=== PATIENT | male | born 1960 | race African-American/Black ===

== ENCOUNTER 2019-03-20 11:27 | Emergency (ER) | payer BC ==
[2019-03-20] MEDS ORDERED: NORMAL SALINE 1000 ML 1,000 ML IV ONE ×3 (11:55→19:37)
[2019-03-20] MEDS ORDERED: THIAMINE HCL 100 MG, FOLIC ACID 1 MG in NORMAL SALINE 250 ML IV ONE (11:57)
--- NOTE | 2019-03-20 11:57 | ER Document Report ---
ED Medical Screen (RME) - General Chief Complaint: Altered Mental Status Stated Complaint: ALTERED MENTAL STATUS Time Seen by Provider: 03/20/19 11:50 Mode of Arrival: Wheelchair Information source: Patient, Relative Cannot obtain history due to: Altered mental status Notes: Patient presents with family member with concerns about patient's health. Patient lives alone and has had a significant weight loss. Review of [facility] records demonstrates a weight loss of 32 kg over the past 4 years. Family member states that patient does drink alcohol daily and has been having memory issues gradually over the past 2 months. Family member checks on patient twice a week and states that he was just balled up in the bed. Patient denies any complaints, no headache, no chest or abdominal pain no nausea or vomiting. Patient is tachycardic in triage. Patient denies feeling like he is having palpitations. Patient poor historian, family member answers majority of questions for patient. I have greeted and performed a rapid initial assessment of this patient. A comprehensive ED assessment and evaluation of the patient, analysis of test results and completion of the medical decision making process will be conducted by additional ED providers. TRAVEL OUTSIDE OF THE [place] IN LAST 30 DAYS: No - Related Data Allergies/Adverse Reactions: No Known Allergies Allergy (Verified 03/20/19 11:28) Past Medical History - Social History Chew tobacco use (# tins/day): No Frequency of alcohol use: Heavy Drug Abuse: None - Past Medical History Cardiac Medical History: Reports: Hx Hypertension - no meds Denies: Hx Coronary Artery Disease, Hx Heart Attack Pulmonary Medical History: Denies: Hx Asthma, Hx Bronchitis, Hx COPD, Hx Pneumonia Neurological Medical History: Denies: Hx Cerebrovascular Accident, Hx Seizures Renal/ Medical History: Denies: Hx Peritoneal Dialysis Musculoskeltal Medical History: Reports Hx Arthritis - knees, feet - Immunizations Hx Diphtheria, Pertussis, Tetanus Vaccination: No Physical Exam - Vital signs Vitals: Temp Pulse Resp BP Pulse Ox 98.1 F 127 H 20 121/79 97 03/20/19 11:37 03/20/19 11:37 03/20/19 11:37 03/20/19 11:37 03/20/19 11:37 - General General appearance: Alert Notes: Patient quiet, answers only some of his questions, family member answers majority of questions, patient cachectic, tachycardic Course - Vital Signs Vital signs: Temp Pulse Resp BP Pulse Ox 98.1 F 127 H 20 121/79 97 03/20/19 11:37 03/20/19 11:37 03/20/19 11:37 03/20/19 11:37 03/20/19 11:37
--- NOTE | 2019-03-20 12:22 | RADIOLOGY REPORT (SQ) ---
EXAM DESCRIPTION: CT HEAD WITHOUT COMPLETED DATE/TIME: 03/20/2019 12:11 pm REASON FOR STUDY: AMS COMPARISON: None. TECHNIQUE: Axial images acquired through the brain without intravenous contrast. Images reviewed wi th bone, brain and subdural windows. Additional sagittal and coronal reconstructions were generated. Images stored on PACS. All CT scanners at this facility use dose modulation, iterative reconstruction, and/or weight based d osing when appropriate to reduce radiation dose to as low as reasonably achievable (ALARA). [facility]: Dose Right [facility]: CareDose [facility]: Dose Right [facility]: Teradose 4D [facility]: [employer] RADIATION DOSE: CT Rad equipment meets quality standard of care and radiation dose reduction techniq ues were employed. CTDIvol: 53.2 mGy. DLP: 1044 mGy-cm. mGy. LIMITATIONS: None. FINDINGS: VENTRICLES: Normal size and contour. CEREBRUM: No masses. No hemorrhage. No midline shift. No evidence for acute infarction. Normal gra y/white matter differentiation. No areas of low density in the white matter. CEREBELLUM: No masses. No hemorrhage. No alteration of density. No evidence for acute infarction. EXTRAAXIAL SPACES: No fluid collections. No masses. ORBITS AND GLOBE: No intra- or extraconal masses. Normal contour of globe without masses. CALVARIUM: No fracture. PARANASAL SINUSES: No fluid or mucosal thickening. SOFT TISSUES: No mass or hematoma. OTHER: No other significant finding. IMPRESSION: NORMAL BRAIN CT WITHOUT CONTRAST. EVIDENCE OF ACUTE STROKE: NO. COMMENT: Quality ID # 436: Final reports with documentation of one or more dose reduction techniques (e.g., Automated exposure control, adjustment of the mA and/or kV according to patient size, use of iterative reconstruction technique) TECHNICAL DOCUMENTATION: JOB ID: [id number] [facility]- All Rights Reserved Reading location - IP/workstation name: [email or web address]
--- NOTE | 2019-03-20 12:34 | RADIOLOGY REPORT (SQ) ---
EXAM DESCRIPTION: CHEST 2 VIEWS COMPLETED DATE/TIME: 03/20/2019 12:19 pm REASON FOR STUDY: AMS, wt loss, tachycardia COMPARISON: 11/04/2014. EXAM PARAMETERS: NUMBER OF VIEWS: two views TECHNIQUE: Digital Frontal and Lateral radiographic views of the chest acquired. RADIATION DOSE: NA LIMITATIONS: none FINDINGS: LUNGS AND PLEURA: No opacities, masses or pneumothorax. No pleural effusion. MEDIASTINUM AND HILAR STRUCTURES: No masses or contour abnormalities. HEART AND VASCULAR STRUCTURES: Heart normal size. No evidence for failure. BONES: No acute findings. HARDWARE: None in the chest. OTHER: No other significant finding. IMPRESSION: NO ACUTE RADIOGRAPHIC FINDING IN THE CHEST. TECHNICAL DOCUMENTATION: JOB ID: [id number] [employer]- All Rights Reserved Reading location - IP/workstation name: [email or web address]
[2019-03-20 12:58] LABS: ABSOLUTE LYMPHOCYTES (AUTO) 1.2 10^3/uL (0.5-4.7); ABSOLUTE MONOCYTES (AUTO) 0.4 10^3/uL (0.1-1.4); ABSOLUTE NEUT (AUTO) 5.7 10^3/uL (1.7-8.2); BASOPHILS % (AUTO) 0.2 % (0-2); HEMATOCRIT 38.1 % (37.9-51.0); HEMOGLOBIN 13.1 g/dL (13.5-17.0); LYMPHOCYTES % (AUTO) 16.5 % (13-45); MEAN CORPUSCULAR HEMOGLOBIN 33.8 pg (27.0-33.4); MEAN CORPUSCULAR HGB CONC 34.5 g/dL (32.0-36.0); MEAN CORPUSCULAR VOLUME 98 fl (80-97); MONOCYTES % (AUTO) 5.9 % (3-13); PLATELET COUNT 282 10^3/uL (150-450); RED BLOOD COUNT 3.89 10^6/uL (4.35-5.55); RED CELL DISTRIBUTION WIDTH 13.8 % (11.5-14.0); SEGMENTED NEUTROPHILS % (AUTO) 77.4 % (42-78); TOTAL CELLS COUNTED % (AUTO) 100 %; WHITE BLOOD COUNT 7.4 10^3/uL (4.0-10.5)
[2019-03-20 13:20] LABS: ALANINE AMINOTRANSFERASE 37 U/L (21-72); ALBUMIN 4.7 g/dL (3.5-5.0); ALKALINE PHOSPHATASE 87 U/L (38-126); ANION GAP 19 (5-19); ASPARTATE AMINO TRANSFERASE 54 U/L (17-59); BILIRUBIN,DIRECT 0.8 mg/dL (0.0-0.4); BILIRUBIN,TOTAL 1.7 mg/dL (0.2-1.3); BLOOD UREA NITROGEN 29 mg/dL (7-20); CALCIUM 10.4 mg/dL (8.4-10.2); CARBON DIOXIDE 20 mmol/L (22-30); CHLORIDE 104 mmol/L (98-107); CREATINE KINASE 23 U/L (55-170); GLUCOSE 179 mg/dL (75-110); POTASSIUM 3.9 mmol/L (3.6-5.0); SODIUM 142.9 mmol/L (137-145); TOTAL PROTEIN 9.4 g/dL (6.3-8.2)
[2019-03-20 13:22] LABS: ALCOHOL < 10 mg/dL (NONE DETECTED)
[2019-03-20 13:32] LABS: CREATINE KINASE MB < 0.22 ng/mL (<4.55); TROPONIN I < 0.012 ng/mL
--- NOTE | 2019-03-20 15:34 | ER Document Report ---
ED General - General Chief Complaint: Altered Mental Status Stated Complaint: ALTERED MENTAL STATUS Time Seen by Provider: 03/20/19 11:50 Mode of Arrival: Wheelchair TRAVEL OUTSIDE OF THE [place].S[place] IN LAST 30 DAYS: No - HPI Notes: 58-year-old male with history of alcohol abuse to the emergency department with brother with complaints of progressively work worsening confusion as well as unintentional weight loss that has been going on for over 6 months. Brother states that in the past 6 months the patient has gotten worse and has not been eating. States that typically he sees the patient every other day and usually the patient will come out and have a nice conversation with him. However today brother found the patient laying in bed without TV on and seemed more confused. Brother does state that patient drinks about a six pack of beer every day and has been doing so for several years. Patient states that he has not had much of an appetite and thus really does not eat. He states that he has not had any vomiting, nausea, diarrhea, abdominal pain, chest pain, shortness of breath. He does admit that he feels mentally foggy. He is unable to state what month or year it is. Does not know what hospital he is in. He cannot tell me who the president is. Brother states that about a year ago he weighed about 170 pounds and today patient weighs 109 pounds. Brother does report a vague history of either hepatitis B or C about 20 years ago. Patient denies seeing a primary care physician in recent years. - Related Data Allergies/Adverse Reactions: No Known Allergies Allergy (Verified 03/20/19 11:28) Past Medical History - General Information source: Patient, Relative - Social History Smoking Status: Never Smoker Chew tobacco use (# tins/day): No Frequency of alcohol use: Heavy Drug Abuse: None Family History: None Patient has suicidal ideation: No Patient has homicidal ideation: No - Past Medical History Cardiac Medical History: Reports: Hx Hypertension - no meds Denies: Hx Coronary Artery Disease, Hx Heart Attack Pulmonary Medical History: Denies: Hx Asthma, Hx Bronchitis, Hx COPD, Hx Pneumonia Neurological Medical History: Denies: Hx Cerebrovascular Accident, Hx Seizures Renal/ Medical History: Denies: Hx Peritoneal Dialysis Musculoskeletal Medical History: Reports Hx Arthritis - knees, feet Past Surgical History: Reports: Hx Abdominal Surgery - hernia repair - Immunizations Hx Diphtheria, Pertussis, Tetanus Vaccination: No Review of Systems - Review of Systems Constitutional: Weakness, Weight loss. denies: Chills, Fever EENT: No symptoms reported Cardiovascular: denies: Chest pain, Syncope, Dizziness, Lightheaded Respiratory: denies: Cough, Short of breath Gastrointestinal: Poor appetite. denies: Abdominal pain, Diarrhea, Nausea, Vomiting, Rectal bleeding Genitourinary: No symptoms reported Musculoskeletal: No symptoms reported Skin: denies: Rash Neurological/Psychological: No symptoms reported -: Yes All other systems reviewed and negative Physical Exam - Vital signs Vitals: Temp Pulse Resp BP Pulse Ox 98.1 F 127 H 20 121/79 97 03/20/19 11:37 03/20/19 11:37 03/20/19 11:37 03/20/19 11:37 03/20/19 11:37 Interpretation: Tachycardic - General General appearance: Other - Patient appears chronically ill, he is jaundiced In distress: None - HEENT Head: Normocephalic Eyes: Normal - Respiratory Respiratory status: No respiratory distress Chest status: Nontender Breath sounds: Normal Chest palpation: Normal - Cardiovascular Rhythm: Regular Heart sounds: Normal auscultation Murmur: No - Abdominal Inspection: Normal Distension: No: No distension, Tympanitic, Fluid wave Bowel sounds: Normal Tenderness: Nontender Organomegaly: No organomegaly - Back Back: Normal, Nontender - Extremities General upper extremity: Normal inspection, Nontender, Normal color, Normal ROM, Normal temperature General lower extremity: Normal inspection, Nontender, Normal color, Normal ROM, Normal temperature, Normal weight bearing. No: Lu's sign - Neurological Neuro grossly intact: Yes Cognition: Confused Orientation: Disoriented to place, Disoriented to time, Disoriented to events Mcallen Coma Scale Eye Opening: Spontaneous Mcallen Coma Scale Verbal: Confused James Coma Scale Motor: Obeys Commands Mcallen Coma Scale Total: 14 Speech: Normal. 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 No: Pronator drift Sensory: Normal - Psychological Associated symptoms: Normal affect, Normal mood - Skin Skin Temperature: Warm Skin Moisture: Dry Skin Color: Normal Course - Vital Signs Vital signs: Temp Pulse Resp BP Pulse Ox 98.1 F 127 H 13 125/71 98 03/20/19 11:37 03/20/19 11:37 03/20/19 19:00 03/20/19 17:01 03/20/19 19:00 03/20/19 19:54 Selected Entries 03/20/19 17:01 Heart Rate ( 64 Monitors) Respiratory 17 Rate Blood Pressure 125/71 Blood Pressure 89 Mean O2 Sat by Pulse 94 Oximetry - Laboratory Result Diagrams: 03/20/19 12:35 03/20/19 12:35 Laboratory results interpreted by me: 03/20/19 03/20/19 03/20/19 06:39 12:33 12:35 RBC 3.89 L Hgb 13.1 L MCV 98 H MCH 33.8 H PT Carbon Dioxide BUN Glucose POC Glucose 168 H Calcium Magnesium Total Bilirubin Direct Bilirubin Ammonia Creatine Kinase Total Protein Urine Ketones Urine Urobilinogen Salicylates < 1.0 L Acetaminophen < 10 L 03/20/19 03/20/19 03/20/19 12:35 16:02 16:02 RBC Hgb MCV MCH PT 17.0 H Carbon Dioxide 20 L BUN 29 H Glucose 179 H POC Glucose Calcium 10.4 H Magnesium 2.9 H Total Bilirubin 1.7 H Direct Bilirubin 0.8 H Ammonia < 8.7 L Creatine Kinase 23 L Total Protein 9.4 H Urine Ketones Urine Urobilinogen Salicylates Acetaminophen 03/20/19 17:54 RBC Hgb MCV MCH PT Carbon Dioxide BUN Glucose POC Glucose Calcium Magnesium Total Bilirubin Direct Bilirubin Ammonia Creatine Kinase Total Protein Urine Ketones 20 H Urine Urobilinogen 4.0 H Salicylates Acetaminophen - Diagnostic Test Radiology reviewed: Image reviewed, Reports reviewed - EKG Interpretation by Me EKG shows normal: Sinus rhythm Rate: Normal Rhythm: NSR When compared to previous EKG there are: No significant change Additional EKG results interpreted by me: 03/20/19 19:55 no STEMI - Transfer of Care Notes: 03/20/[address] Barnhart, ER attending. She agrees with the current plan. Aware that patient is altered and only oriented to himself. He will follow simple commands. Will await labs, CT of abd. High suspicion for malignancy. Noted CT result for pancreatic head mass. Very concerning for malignancy. Will plan on admission. Discussed findings with patient. Brother has POA but they have not discussed advanced directives. Patient is unsure of what he wants. Will allow family to discuss but will default to a Full code status for now. Dr. Barnhart agrees. Will discuss with hospitalist team. Spoke with Dr. Gallardo about patient. Since we do not have GI coverage and patient will likely need ERCP for bx and further treatment for evaluation of this pancreatic mass -- suggests transfer for high level of care. Rounded with family, they would like to transfer over to [facility]. Page out to [facility]. Spoke with Transfer Center. They will return call once they get Hospitalist. 03/20/19 19:[address] Ciaran Lozano, hospitalist at [facility]. He agrees with plan for admission for patient. He is aware of the imaging studies, lab work, patient exam, vital signs. Will place patient on a 75 mL/h normal saline infusion. He has been slightly tremulous and will give half a milligram of Ativan. Impression: Pancreatic head mass, altered mental status, alcohol abuse, de hydration. Will transfer patient to [facility] for higher level of care to include GI consultation with likely ERCP for biopsy of pancreatic mass. Patient and family agree with the plan for transfer and consent for treatment. Discharge - Discharge Clinical Impression: Pancreatic mass, Unintentional weight loss, Dehydration, Alcohol abuse Disposition: [facility]
[2019-03-20 17:37] LABS: INTERNATIONAL RATION (INR) 1.38
[2019-03-20 17:38] LABS: PARTIAL THROMBOPLASTIN TIME 23.7 SEC (23.5-35.8)
--- NOTE | 2019-03-20 18:06 | RADIOLOGY REPORT (SQ) ---
EXAM DESCRIPTION: CT ABD/PELVIS WITH IV ONLY COMPLETED DATE/TIME: 03/20/2019 5:42 pm REASON FOR STUDY: weight loss, jaundice, elevated bili COMPARISON: None. TECHNIQUE: CT scan of the abdomen and pelvis performed using helical scanning technique with dynamic intravenous contrast injection. No oral contrast. Images reviewed with lung, soft tissue, and bone windows. Reconstructed coronal and sagittal MPR images reviewed. Delayed images for evaluation of the urinary system also acquired. All images stored on PACS. All CT scanners at this facility use dose modulation, iterative reconstruction, and/or weight based d osing when appropriate to reduce radiation dose to as low as reasonably achievable (ALARA). [facility]: Dose Right [facility]: CareDose [facility]: Dose Right [facility]: Teradose 4D [facility]: [employer] CONTRAST TYPE AND DOSE: contrast/concentration: Isovue 350.00 mg/ml; Total Contrast Delivered: 56.0 ml; Total Saline Delivered: 65.0 ml RENAL FUNCTION: BUN 29; creatinine 0.92 RADIATION DOSE: CT Rad equipment meets quality standard of care and radiation dose reduction techniq ues were employed. CTDIvol: 4.8 - 4.9 mGy. DLP: 475 mGy-cm.. LIMITATIONS: None. FINDINGS: LOWER CHEST: No significant findings. No nodules or infiltrates. LIVER: The liver demonstrates normal size and contours noting mildly heterogeneous attenuation and en hancement. No focal masses. SPLEEN: Normal size. No focal lesions. PANCREAS: There is a poorly defined pancreatic head mass with coarse calcifications. This lesion nila sures on the order of 3.9 x 2.7 x 4.4 cm. The pancreatic duct is dilated. No surrounding inflammato ry changes are demonstrated. GALLBLADDER: No identified stones by CT criteria. No inflammatory changes to suggest cholecystitis. ADRENAL GLANDS: No significant masses or asymmetry. RIGHT KIDNEY AND URETER: No solid masses. A 2.6 cm simple cyst is seen within the superior pole. Fe w smaller subcentimeter similar appearing lesions are demonstrated. No significant calcifications. No hydronephrosis or hydroureter. LEFT KIDNEY AND URETER: No solid masses. No significant calcifications. No hydronephrosis or hydr oureter. AORTA AND VESSELS: No aneurysm. No dissection. Renal arteries, SMA, celiac without stenosis. RETROPERITONEUM: No retroperitoneal adenopathy, hemorrhage or masses. BOWEL AND PERITONEAL CAVITY: No masses or inflammatory changes. No free fluid or peritoneal masses. APPENDIX: Not visualized. PELVIS: No mass. No free fluid. Normal bladder. ABDOMINAL WALL: No masses. No hernias. BONES: Grade 1 anterolisthesis of L5 relative to S1 on the basis of bilateral L5 pars interarticulari s defects and severe discogenic disease. Mild degenerative changes of the hips. No suspicious lytic or blastic osseous lesions. OTHER: No other significant finding. IMPRESSION: Roughly 3.9 x 2.7 x 4.4 cm ill-defined pancreatic head mass demonstrating coarse calcifi cations and resulting in dilation of the pancreatic duct. TECHNICAL DOCUMENTATION: JOB ID: [id number] Quality ID # 436: Final reports with documentation of one or more dose reduction techniques (e.g., Au tomated exposure control, adjustment of the mA and/or kV according to patient size, use of iterative reconstruction technique) 2010 [email or web address]- All Rights Reserved Reading location - IP/workstation name: [email or web address]
[2019-03-20 18:25] LABS: APPEARANCE,URINE CLEAR; BILIRUBIN,URINE NEGATIVE (NEGATIVE); COLOR,URINE AMBER; GLUCOSE, URINE NEGATIVE (NEGATIVE); KETONES,URINE 20 mg/dL (NEGATIVE); LEUKOCYTE ESTERASE,URINE NEGATIVE (NEGATIVE); NITRITE,URINE NEGATIVE (NEGATIVE); PROTEIN,URINE NEGATIVE (NEGATIVE); URINE SPECIFIC GRAVITY 1.027
[2019-03-20 19:12] LABS: ACETAMINOPHEN < 10 ug/mL (10-30); SALICYLATE < 1.0 mg/dL (2.0-20.0)
[2019-03-20 19:33] LABS: URINE AMPHETAMINES SCREEN NEGATIVE; URINE BARBITURATES SCREEN NEGATIVE; URINE BENZODIAZEPINES SCREEN NEGATIVE; URINE COCAINE SCREEN NEGATIVE; URINE MARIJUANA (THC) SCREEN NEGATIVE; URINE METHADONE SCREEN NEGATIVE; URINE PHENCYCLIDINE SCREEN NEGATIVE
[2019-03-20] MEDS ORDERED: LORAZEPAM INJ 2 MG/1 ML VIAL IV ONE (19:36)
--- NOTE | 2019-03-20 21:57 | EKG REPORT ---
SEVERITY:- BORDERLINE ECG - SINUS RHYTHM LOW VOLTAGE IN FRONTAL LEADS BORDERLINE T ABNORMALITIES, ANT-LAT LEADS : Confirmed by: Jeff Acevedo 20-Mar-2019 21:56:21
[2019-03-21 00:18] VITALS: BP 109/65
== END 2019-03-21 00:23 | disposition short-term general hospital (02) ==
LOC: ER 11:27
DX: K86.9 Disease of pancreas, unspecified (principal); R63.4 Abnormal weight loss; F10.10 Alcohol abuse, uncomplicated; E86.0 Dehydration; R17 Unspecified jaundice; R41.0 Disorientation, unspecified; R53.1 Weakness; I10 Essential (primary) hypertension
CPT/HCPCS: 93005; 99285; 96361; 51701; 96375; 96365; 96366; 36415; 82553; 82962; 80307 ×4; 82140; 82550; 83735; 85025; 85610; 85730; 80053; 81001; 84484; 71046; 70450; 74177; 93010; C1758; J3490; J2060; J3411; J7030; J7050

== ENCOUNTER 2019-04-15 08:29 | Emergency (ER) | payer BC ==
--- NOTE | 2019-04-15 09:12 | ER Document Report ---
HPI - HPI Patient complains to provider of: g Tube problem Time Seen by Provider: 04/15/19 08:51 Onset: Just prior to arrival Quality of pain: No pain Pain Level: Denies Context: Patient is a resident of [facility] and was in the shower today. Patient accidentally pulled his G-tube out. Patient has only had the tube in for about a month. Associated Symptoms: None Exacerbated by: Denies Relieved by: Denies Similar symptoms previously: No Recently seen / treated by doctor: No - ROS ROS below otherwise negative: Yes Systems Reviewed and Negative: Yes All other systems reviewed and negative - GASTROINTESTINAL Gastrointestinal: DENIES: Abdominal Pain - DERM Skin Color: Normal Skin Problems: None Past Medical History - General Information source: Patient, Transfer Record - Social History Smoking Status: Unknown if Ever Smoked Frequency of alcohol use: Heavy - Former Lives with: Skilled Nursing Family History: None Patient has suicidal ideation: No Patient has homicidal ideation: No - Past Medical History Cardiac Medical History: Reports: Hx Hypertension - no meds Denies: Hx Coronary Artery Disease, Hx Heart Attack Pulmonary Medical History: Denies: Hx Asthma, Hx Bronchitis, Hx COPD, Hx Pneumonia Neurological Medical History: Reports: Other - Dementia. Denies: Hx Cerebrovascular Accident, Hx Seizures Endocrine Medical History: Reports: Hx Diabetes Mellitus Type 2 Renal/ Medical History: Denies: Hx Peritoneal Dialysis Malignancy Medical History: Reports Hx Pancreatic Cancer Musculoskeletal Medical History: Reports Hx Arthritis - knees, feet Past Surgical History: Reports: Hx Abdominal Surgery - hernia repair - Immunizations Hx Diphtheria, Pertussis, Tetanus Vaccination: No Vertical Provider Document - CONSTITUTIONAL Agree With Documented VS: Yes Exam Limitations: Other - dementia General Appearance: WD/WN, No Apparent Distress - INFECTION CONTROL TRAVEL OUTSIDE OF THE [place] IN LAST 30 DAYS: No - HEENT HEENT: Atraumatic, Normocephalic - NECK Neck: Normal Inspection - RESPIRATORY Respiratory: Breath Sounds Normal, No Respiratory Distress - CARDIOVASCULAR Cardiovascular: Regular Rate, Regular Rhythm - GI/ABDOMEN Gastrointestinal: Abdomen Soft, Abdomen Non-Tender, No Organomegaly, Normal Bowel Sounds - MUSCULOSKELETAL/EXTREMETIES Musculoskeletal/Extremeties: MAEW - NEURO Level of Consciousness: Awake, Alert, Confused Motor/Sensory: No Motor Deficit - DERM Integumentary: Warm, Dry Course - Re-evaluation Re-evalutation: 04/15/19 09:[address] Curtis, Dr. Curtis to bedside to assist with G-tube replacement. 14 [place] G-tube reinserted per Dr. Curtis, balloon was inflated with 5 mL's normal saline. Patient tolerated procedure well. 04/15/19 11:24 Fluoroscopy performed verifying correct placement of G-tube. Patient stable for discharge at this time. 04/15/19 15:31 Patient resting comfortably watching TV, denies any needs at this time. - Diagnostic Test Radiology reviewed: Reports reviewed Discharge - Discharge Clinical Impression: Encounter for gastrojejunal tube placement Condition: Stable Disposition: HOME, SELF-CARE Additional Instructions: Return immediately for any new or worsening symptoms Followup with your primary care provider, call tomorrow to make a followup appointment
--- NOTE | 2019-04-15 10:54 | RADIOLOGY REPORT (SQ) ---
EXAM DESCRIPTION: INJECT EXISTING/TUBE PLACEMENT; NOT FOR OR FLUORO TO 1 HR COMPLETED DATE/TIME: 04/15/2019 10:05 am; 04/15/2019 10:06 am REASON FOR STUDY: KUB w Gastrografin check G tube replacement; G TUBE CHECK COMPARISON: None. FLUOROSCOPY TIME: 0.5 minutes of fluoroscopy was used. 5 images saved to PACS. TECHNIQUE: Injection of contrast through existing catheter. Fluoroscopic spot films saved to PACS d emonstrating final catheter position. LIMITATIONS: None. FINDINGS: CONTRAST INJECTED: 50 mL Gastrografin TUBE POSITION: The tip of the catheter is within the stomach. Contrast can be seen emptying out of th e stomach and into the small intestine. IMPRESSION: THE CATHETER APPEARS TO BE IN SATISFACTORY POSITION. COMMENT: Quality ID 145: Final reports for procedures using fluoroscopy that document radiation exp osure indices, or exposure time and number of fluorographic images (if radiation exposure indices are not available) TECHNICAL DOCUMENTATION: JOB ID: [id number] [employer]- All Rights Reserved Reading location - IP/workstation name: [email or web address]
--- NOTE | 2019-04-15 10:54 | RADIOLOGY REPORT (SQ) ---
EXAM DESCRIPTION: INJECT EXISTING/TUBE PLACEMENT; NOT FOR OR FLUORO TO 1 HR COMPLETED DATE/TIME: 04/15/2019 10:05 am; 04/15/2019 10:06 am REASON FOR STUDY: KUB w Gastrografin check G tube replacement; G TUBE CHECK COMPARISON: None. FLUOROSCOPY TIME: 0.5 minutes of fluoroscopy was used. 5 images saved to PACS. TECHNIQUE: Injection of contrast through existing catheter. Fluoroscopic spot films saved to PACS d emonstrating final catheter position. LIMITATIONS: None. FINDINGS: CONTRAST INJECTED: 50 mL Gastrografin TUBE POSITION: The tip of the catheter is within the stomach. Contrast can be seen emptying out of th e stomach and into the small intestine. IMPRESSION: THE CATHETER APPEARS TO BE IN SATISFACTORY POSITION. COMMENT: Quality ID 145: Final reports for procedures using fluoroscopy that document radiation exp osure indices, or exposure time and number of fluorographic images (if radiation exposure indices are not available) TECHNICAL DOCUMENTATION: JOB ID: [id number] [employer]- All Rights Reserved Reading location - IP/workstation name: [email or web address]
--- NOTE | 2019-04-15 13:12 | ER Document Report ---
Doctor's Note Notes: 04/15/19 13:11 The patient was seen [id number] by myself with advanced provider. The area of the feeding tube appeared to be a mature track and was explored with a cotton tip applicator with no difficulty or resistance a commercially produced feeding tube was instilled using sterile procedure 5 cc of saline was instilled into the balloon and the cuff was placed. It flushed without resistance it was confirmed with Gastrografin KUB.
[2019-04-15 16:22] VITALS: BP 122/68
== END 2019-04-15 16:26 | disposition home or self-care (01) ==
LOC: ER 08:29
DX: Z43.1 Encounter for attention to gastrostomy (principal); I10 Essential (primary) hypertension; E11.9 Type 2 diabetes mellitus without complications; F03.90 Unspecified dementia, unspecified severity, without behavioral disturbance, psychotic disturbance, mood disturbance, and anxiety
CPT/HCPCS: 49465; 76000; 99284

== ENCOUNTER → 2019-05-02 | Outpatient (CLI) | payer BC ==
[2019-05-02 11:20] LABS: ABSOLUTE LYMPHOCYTES (AUTO) 1.4 10^3/uL (0.5-4.7); ABSOLUTE MONOCYTES (AUTO) 0.4 10^3/uL (0.1-1.4); ABSOLUTE NEUT (AUTO) 2.6 10^3/uL (1.7-8.2); BASOPHILS % (AUTO) 0.5 % (0-2); EOSINOPHILS % (AUTO) 1.1 % (0-6); HEMATOCRIT 31.9 % (37.9-51.0); HEMOGLOBIN 10.8 g/dL (13.5-17.0); MEAN CORPUSCULAR HGB CONC 33.7 g/dL (32.0-36.0); MEAN CORPUSCULAR VOLUME 98 fl (80-97); MONOCYTES % (AUTO) 9.4 % (3-13); PLATELET COUNT 275 10^3/uL (150-450); RED BLOOD COUNT 3.27 10^6/uL (4.35-5.55); RED CELL DISTRIBUTION WIDTH 14.2 % (11.5-14.0); TOTAL CELLS COUNTED % (AUTO) 100 %; WHITE BLOOD COUNT 4.4 10^3/uL (4.0-10.5)
[2019-05-02 11:55] LABS: ALBUMIN 4.1 g/dL (3.5-5.0); ALKALINE PHOSPHATASE 66 U/L (38-126); ANION GAP 10 (5-19); ASPARTATE AMINO TRANSFERASE 27 U/L (17-59); BILIRUBIN,DIRECT 0.2 mg/dL (0.0-0.4); BILIRUBIN,TOTAL 0.3 mg/dL (0.2-1.3); BLOOD UREA NITROGEN 12 mg/dL (7-20); CARBON DIOXIDE 26 mmol/L (22-30); CHLORIDE 106 mmol/L (98-107); CHOLESTEROL 171.19 mg/dL (0-200); GLUCOSE 87 mg/dL (75-110); POTASSIUM 4.4 mmol/L (3.6-5.0); TOTAL PROTEIN 7.6 g/dL (6.3-8.2); TRIGLYCERIDES 50 mg/dL (<150)
[2019-05-02 12:06] LABS: DIRECT LDL 100 mg/dL (<100)
[2019-05-03 15:00] LABS: VITAMIN D 1,25 DIHYDROXY 41.7 pg/mL (19.9-79.3)
[2019-05-05 10:41] LABS: VITAMIN B1 (THIAMINE) 101.1 nmol/L (66.5-200.0)
== END ==
LOC: OD 10:29
PROVIDERS: ATTEND Family Medicine Geriatric Medicine
DX: E87.6 Hypokalemia (principal); E55.9 Vitamin D deficiency, unspecified; E51.9 Thiamine deficiency, unspecified; R62.7 Adult failure to thrive; R63.4 Abnormal weight loss; R11.0 Nausea; Z93.1 Gastrostomy status; K05.30 Chronic periodontitis, unspecified; K02.9 Dental caries, unspecified; K59.00 Constipation, unspecified; F10.11 Alcohol abuse, in remission; F10.27 Alcohol dependence with alcohol-induced persisting dementia; Z29.9 Encounter for prophylactic measures, unspecified; Z79.899 Other long term (current) drug therapy; Z68.1 Body mass index [BMI] 19.9 or less, adult
CPT/HCPCS: 36415; 80053; 80061; 82652; 83735; 84425; 84443; 85025

== ENCOUNTER 2019-05-11 20:31 | Emergency (ER) | payer BC ==
[2019-05-11 21:37] LABS: ABSOLUTE EOSINOPHILS # (AUTO) 0.1 10^3/uL (0.0-0.6); ABSOLUTE MONOCYTES (AUTO) 0.6 10^3/uL (0.1-1.4); EOSINOPHILS % (AUTO) 1.7 % (0-6); TOTAL CELLS COUNTED % (AUTO) 100 %
[2019-05-11 21:42] LABS: INTERNATIONAL RATION (INR) 1.18; PARTIAL THROMBOPLASTIN TIME 26.4 SEC (23.5-35.8); PROTHROMBIN TIME 15.1 SEC (11.4-15.4)
[2019-05-11 21:44] LABS: ABSOLUTE LYMPHOCYTES (AUTO) 1.7 10^3/uL (0.5-4.7); ABSOLUTE NEUT (AUTO) 3.3 10^3/uL (1.7-8.2); BASOPHILS % (AUTO) 0.4 % (0-2); HEMATOCRIT 32.6 % (37.9-51.0); HEMOGLOBIN 10.9 g/dL (13.5-17.0); LYMPHOCYTES % (AUTO) 28.8 % (13-45); MEAN CORPUSCULAR HEMOGLOBIN 32.3 pg (27.0-33.4); MEAN CORPUSCULAR HGB CONC 33.3 g/dL (32.0-36.0); MEAN CORPUSCULAR VOLUME 97 fl (80-97); MONOCYTES % (AUTO) 10.9 % (3-13); PLATELET COUNT 268 10^3/uL (150-450); RED BLOOD COUNT 3.36 10^6/uL (4.35-5.55); SEGMENTED NEUTROPHILS % (AUTO) 58.2 % (42-78); WHITE BLOOD COUNT 5.7 10^3/uL (4.0-10.5)
--- NOTE | 2019-05-11 21:51 | ER Document Report ---
ED General - General Chief Complaint: Altered Mental Status Stated Complaint: ALTERED MENTAL STATUS Time Seen by Provider: 05/11/19 20:59 Primary Care Provider: JOE ARRIAGA MD [Primary Care Provider] - 05/13/19 (call for appointment) Mode of Arrival: Ambulatory Information source: Patient, Relative - brother and [id number] Notes: This 60-year-old male presents emergency department with history of dementia, pancreatitis, alcohol abuse presents with his brother and [id number] for reports of increased confusion. Sister in law reports for the past week and a half patient's had increased dementia and confusion. The family has contacted Dr. Arriaga, his provider twice this week. Eoipme-rn-rmm reports she last talked to Dr. Arriaga this evening. She reports that Dr Arriaga did not want to increase the dosage of Seroquel or provide any other meds to decrease the confusion and dementia because he does not want the patient to be sedated during the day. He is worried that it will affect his sleep pattern at night. She reports Dr. Arriaga suggested bring him to the emergency department to be evaluated for possible UTI. Zceqeq-[id number] reports patient is constantly confused about going to work and wanting to drive. She reports he lost his license over a year ago due to a DUI. Patient did not complete community service. She reports this evening patient became very confused and took off walking. They had to call the fire patroller. [place] [address] which [place] approximately 2 miles from their house. Patient is calm. Patient is aware of his place, name and birthdate but is confused to time. Brother reports patient's been coughing a lot for the past 2 days. Giuakz-hs-his reports patient does not drink enough water. No fever vomiting or diarrhea. Patient has a G-tube in place. TRAVEL OUTSIDE OF THE [place] IN LAST 30 DAYS: No - HPI Onset: Other Onset/Duration: Persistent Quality of pain: No pain Severity: None Associated symptoms: Nonproductive cough Exacerbated by: Denies Relieved by: Denies Similar symptoms previously: Yes Recently seen / treated by doctor: Yes - Related Data Allergies/Adverse Reactions: No Known Allergies Allergy (Verified 03/20/19 11:28) Past Medical History - General Information source: Patient, Relative - Social History Smoking Status: Never Smoker Chew tobacco use (# tins/day): No Frequency of alcohol use: Heavy Drug Abuse: None Occupation: retired Lives with: Family Family History: None Patient has suicidal ideation: No Patient has homicidal ideation: No - Past Medical History Cardiac Medical History: Reports: Hx Hypertension - no meds Denies: Hx Coronary Artery Disease, Hx Heart Attack Pulmonary Medical History: Denies: Hx Asthma, Hx Bronchitis, Hx COPD, Hx Pneumonia Neurological Medical History: Denies: Hx Cerebrovascular Accident, Hx Seizures Endocrine Medical History: Reports: Hx Diabetes Mellitus Type 2 Renal/ Medical History: Denies: Hx Peritoneal Dialysis Malignancy Medical History: Reports Hx Pancreatic Cancer GI Medical History: Reports: Hx Pancreatitis Musculoskeletal Medical History: Reports Hx Arthritis - knees, feet Psychiatric Medical History: Reports: Hx Dementia Past Surgical History: Reports: Hx Abdominal Surgery - hernia repair - Immunizations Hx Diphtheria, Pertussis, Tetanus Vaccination: No Review of Systems - Review of Systems Notes: Review HPI for review of systems., All other systems negative Physical Exam - Vital signs Vitals: Temp Pulse Resp BP Pulse Ox 98.6 F 97 16 131/72 H 98 05/11/19 20:40 05/11/19 20:40 05/11/19 20:40 05/11/19 20:40 05/11/19 20:40 - General General appearance: Appears well, Alert In distress: None - HEENT Head: Normocephalic, Atraumatic Eyes: Normal Conjunctiva: Normal Extraocular movements intact: Yes Pupils: PERRL Neck: Normal, Supple. No: Lymphadenopathy - Respiratory Respiratory status: No respiratory distress Chest status: Nontender Breath sounds: Normal Chest palpation: Normal - Cardiovascular Rhythm: Regular Heart sounds: Normal auscultation Murmur: No - Abdominal Inspection: Normal, Other - gtube intact, site benign Distension: No distension Bowel sounds: Normal Tenderness: Nontender Organomegaly: No organomegaly - Back Back: Normal, Nontender - Extremities General upper extremity: Normal ROM General lower extremity: Normal ROM, Normal weight bearing - Neurological Neuro grossly intact: Yes Cognition: Confused Orientation: Disoriented to time, Disoriented to events James Coma Scale Eye Opening: Spontaneous James Coma Scale Verbal: Oriented [place] Coma Scale Motor: Obeys Commands James Coma Scale Total: 15 Speech: Normal Cranial nerves: Normal Cerebellar coordination: Normal Motor strength normal: LUE, RUE, LLE, RLE 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 Reports increased agitation and confusion today. Report patient has been saying he is going to work when he has not worked in over a year. Also reports patient continues look for his car keys when he has not driven for over a year. The family did discuss these symptoms with Dr. Arriaga twice this week. They asked for some medication to be increased to keep him less agitated during the day. They report Dr. Arriaga declined because he did not want the patient to be sleeping during the day because it would interrupt his sleep pattern at night. He did suggest that patient may have a UTI. Labs and chest x-ray completed. Chest x-ray is negative, patient did have trace ketones trace leukocytes 17 WBCs +1 bacteria. Other labs unremarkable. Vital signs stable. We will treat pat ient with Macrobid for UTI. He was instructed on the importance of follow-up with Dr. arriaga to discuss plan of care for patient. They verbalized understanding Dictation of this chart was performed using voice recognition software; therefore, there may be some unintended grammatical errors. 05/11/19 21:25 05/11/19 21:25 MCV 97 fl (80-97) 05/11/19 21:25 MCH 32.3 pg (27.0-33.4) 05/11/19 21:25 MCHC 33.3 g/dL (32.0-36.0) 05/11/19 21:25 RDW 14.0 % (11.5-14.0) 05/11/19 21:25 Seg Neutrophils % 58.2 % (42-78) 05/11/19 21:25 Lymphocytes % 28.8 % (13-45) 05/11/19 21:25 Monocytes % 10.9 % (3-13) 05/11/19 21:25 Eosinophils % 1.7 % (0-6) 05/11/19 21:25 Basophils % 0.4 % (0-2) 05/11/19 21:25 Absolute Neutrophils 3.3 10^3/uL (1.7-8.2) 05/11/19 21:25 Absolute Lymphocytes 1.7 10^3/uL (0.5-4.7) 05/11/19 21:25 Absolute Monocytes 0.6 10^3/uL (0.1-1.4) 05/11/19 21:25 Absolute Eosinophils 0.1 10^3/uL (0.0-0.6) 05/11/19 21:25 Absolute Basophils 0.0 10^3/uL (0.0-0.2) 05/11/19 21:25 Chloride 103 mmol/L (98-107) 05/11/19 21:25 Carbon Dioxide 29 mmol/L (22-30) 05/11/19 21:25 Anion Gap 9 (5-19) 05/11/19 21:25 Est GFR ( Amer) > 60 (>60) 05/11/19 21:25 Est GFR (Non-Af Amer) > 60 (>60) 05/11/19 21:25 Glucose 100 mg/dL (75-110) 05/11/19 21:25 Calcium 9.7 mg/dL (8.4-10.2) 05/11/19 21:25 Total Bilirubin 0.1 mg/dL (0.2-1.3) L 05/11/19 21:25 AST 32 U/L (17-59) 05/11/19 21:25 Alkaline Phosphatase 74 U/L (38-126) 05/11/19 21:25 Total Protein 7.8 g/dL (6.3-8.2) 05/11/19 21:25 Albumin 4.1 g/dL (3.5-5.0) 05/11/19 21:25 Urine Color COLTON 05/11/19 21:30 Urine Appearance CLOUDY 05/11/19 21:30 Urine pH 6.0 (5.0-9.0) 05/11/19 21:30 Ur Specific [place] 1.025 05/11/19 21:30 Urine Protein NEGATIVE mg/dL (NEGATIVE) 05/11/19 21:30 Urine Glucose (UA) NEGATIVE mg/dL (NEGATIVE) 05/11/19 21:30 Urine Ketones TRACE mg/dL (NEGATIVE) H 05/11/19 21:30 Urine Blood NEGATIVE (NEGATIVE) 05/11/19 21:30 Urine Nitrite NEGATIVE (NEGATIVE) 05/11/19 21:30 Ur Leukocyte Esterase TRACE (NEGATIVE) H 05/11/19 21:30 Urine WBC (Auto) 17 /HPF 05/11/19 21:30 Urine RBC (Auto) 4 /HPF 05/11/19 21:30 Chest X-Ray 05/11/19 21:21 IMPRESSION: No evidence of acute cardiopulmonary disease. - Vital Signs Vital signs: Temp Pulse Resp BP Pulse Ox 98.6 F 82 16 123/61 100 05/11/19 23:01 05/11/19 23:01 05/11/19 23:01 05/11/19 23:01 05/11/19 23:01 - Laboratory Result Diagrams: 05/11/19 21:25 05/11/19 21:25 Laboratory results interpreted by me: 05/11/19 05/11/19 05/11/19 21:25 21:25 21:30 RBC 3.36 L Hgb 10.9 L Hct 32.6 L Total Bilirubin 0.1 L Urine Ketones TRACE H Urine Urobilinogen 4.0 H Ur Leukocyte Esterase TRACE H Urine Ascorbic Acid 40 H - Diagnostic Test Radiology reviewed: Image reviewed, Reports reviewed Discharge - Discharge Clinical Impression: Confusion UTI (urinary tract infection) Qualifiers: Urinary tract infection type: site unspecified Hematuria presence: without hematuria Qualified Code(s): N39.0 - Urinary tract infection, site not specified Condition: Stable Disposition: HOME, SELF-CARE Instructions: Nitrofurantoin ([facility]), Urinary Tract Infection ([facility]) Additional Instructions: *You have been evaluated for increased confusion, UTI *Take medication as prescribed *Push fluids *Follow up with Dr Arriaga Monday *Plan urine recheck in one week *Return to ED for worsening condition, changes, needs Monitor your blood pressure. Your blood pressure was elevated today. This may be because you were anxious, in pain or because you need medication. It is important to follow up with your primary care provider for full evaluation. Prescriptions: Nitrofurantoin/Nitrofuran Mac [Macrobid 100 mg Capsule] 100 mg PO BID #20 capsule Forms: Elevated Blood Pressure Referrals: JOE ARRIAGA MD [Primary Care Provider] - 05/13/19 (call for appointment)
[2019-05-11 21:58] LABS: ALBUMIN 4.1 g/dL (3.5-5.0); ALKALINE PHOSPHATASE 74 U/L (38-126); ANION GAP 9 (5-19); ASPARTATE AMINO TRANSFERASE 32 U/L (17-59); BILIRUBIN,DIRECT 0.1 mg/dL (0.0-0.4); BILIRUBIN,TOTAL 0.1 mg/dL (0.2-1.3); BLOOD UREA NITROGEN 10 mg/dL (7-20); CALCIUM 9.7 mg/dL (8.4-10.2); CARBON DIOXIDE 29 mmol/L (22-30); CHLORIDE 103 mmol/L (98-107); GLUCOSE 100 mg/dL (75-110); POTASSIUM 3.9 mmol/L (3.6-5.0); TOTAL PROTEIN 7.8 g/dL (6.3-8.2)
--- NOTE | 2019-05-11 22:05 | RADIOLOGY REPORT (SQ) ---
XR CHEST 2 VIEWS EXAM DATE: 05/11/2019 9:21 PM CDT HISTORY: Cough . COMPARISON: 11/04/2014 FINDINGS: The heart size is within normal limits. No consolidation, pleural effusion, or pneumothorax is seen. The bony thorax is intact. IMPRESSION: No evidence of acute cardiopulmonary disease.
[2019-05-11 22:08] LABS: APPEARANCE,URINE CLOUDY; BILIRUBIN,URINE NEGATIVE (NEGATIVE); CALCIUM OXALATE CRYSTALS,URINE MODERATE /HPF; COLOR,URINE AMBER; GLUCOSE, URINE NEGATIVE (NEGATIVE); KETONES,URINE TRACE mg/dL (NEGATIVE); LEUKOCYTE ESTERASE,URINE TRACE (NEGATIVE); NITRITE,URINE NEGATIVE (NEGATIVE); PROTEIN,URINE NEGATIVE (NEGATIVE); URINE SPECIFIC GRAVITY 1.025
[2019-05-11] MEDS ORDERED: NITROFURANTOIN MONOHYD/M-CRYST 100 MG CAPSULE PO ONE (22:36)
[2019-05-11 23:03] VITALS: BP 123/61
== END 2019-05-11 23:03 | disposition home or self-care (01) ==
LOC: ER 20:31
DX: N39.0 Urinary tract infection, site not specified (principal); F03.91 Unspecified dementia, unspecified severity, with behavioral disturbance; Z91.83 Wandering in diseases classified elsewhere; Z79.899 Other long term (current) drug therapy; R05 Cough; I10 Essential (primary) hypertension; E11.9 Type 2 diabetes mellitus without complications; Z85.07 Personal history of malignant neoplasm of pancreas; Z93.1 Gastrostomy status
CPT/HCPCS: 36415; 87086; 85025; 85610; 85730; 87088; 80053; 81001; 71046; J8499; 87186; 99285

== ENCOUNTER → 2019-06-13 | Outpatient (CLI) | payer BC ==
[2019-06-13 11:24] LABS: ABSOLUTE EOSINOPHILS # (AUTO) 0.2 10^3/uL (0.0-0.6); ABSOLUTE LYMPHOCYTES (AUTO) 1.5 10^3/uL (0.5-4.7); ABSOLUTE MONOCYTES (AUTO) 0.4 10^3/uL (0.1-1.4); ABSOLUTE NEUT (AUTO) 2.2 10^3/uL (1.7-8.2); BASOPHILS % (AUTO) 0.8 % (0-2); EOSINOPHILS % (AUTO) 5.1 % (0-6); HEMATOCRIT 36.1 % (37.9-51.0); LYMPHOCYTES % (AUTO) 34.2 % (13-45); MEAN CORPUSCULAR HEMOGLOBIN 31.1 pg (27.0-33.4); MEAN CORPUSCULAR HGB CONC 33.1 g/dL (32.0-36.0); MEAN CORPUSCULAR VOLUME 94 fl (80-97); MONOCYTES % (AUTO) 9.8 % (3-13); PLATELET COUNT 239 10^3/uL (150-450); RED BLOOD COUNT 3.85 10^6/uL (4.35-5.55); RED CELL DISTRIBUTION WIDTH 13.7 % (11.5-14.0); SEGMENTED NEUTROPHILS % (AUTO) 50.1 % (42-78); TOTAL CELLS COUNTED % (AUTO) 100 %; WHITE BLOOD COUNT 4.4 10^3/uL (4.0-10.5)
== END ==
LOC: OD 10:27
PROVIDERS: ATTEND Family Medicine Geriatric Medicine
DX: D75.89 Other specified diseases of blood and blood-forming organs (principal); D64.9 Anemia, unspecified; Z79.899 Other long term (current) drug therapy
CPT/HCPCS: 36415; 82607; 84425; 85025

== ENCOUNTER 2019-07-01 07:45 | Day surgery (SDC) | payer BC ==
[~2019-07-01 07:45] MED LIST: PROPOFOL INJ 200 MG/20 ML VIAL IV ONE
[2019-07-01 09:10] VITALS: BP 118/59
--- NOTE | 2019-07-01 13:42 | Operative Report ---
Operative Report DATE OF SURGERY: 07/01/19 Operative Report: The risks, benefits and alternatives of the procedure including the risks of bleeding, perforation requiring surgery have been explained to the patient in detail and informed consent has been obtained. Patient is taken back to the endoscopy suite and placed in a left, lateral decubital position. Timeout was called. Propofol medication is administered. Rectal examination is done which did not reveal any masses, tears or fissures. An Olympus videoscope was introduced into the patient's rectum. The scope was then carefully advanced all the way to the cecum. The cecum was identified by the usual anatomical landmarks including the ileocecal valve as well as appendiceal office. Photodocumentation is obtained. The scope was then sequentially pulled back via the various segments of the colon including the ascending colon, hepatic flexure, transverse colon, splenic flexure, descending colon and finally into the rectosigmoid portions of the colon. Retroflexion maneuvers performed. The risks benefits and alternatives of the procedure explained to the patient in detail and informed consent is obtained.A GIF Olympus video scope was inserted into the patient's mouth and hypopharynx, the esophagus is identified intubated and insufflated ,the scope was then advanced through the esophagus stomach and duodenum, retroflexion maneuver is done, the esophagus stomach and first and second portions of the duodenum examined. PREOPERATIVE DIAGNOSIS: Colorectal cancer screening, weight loss. Patient's family wanted previous PEG tube that have been placed by another physician removed. POSTOPERATIVE DIAGNOSIS: Right side colon Inflammation status post biopsy. Internal hemorrhoids OPERATION: Colonoscopy with biopsy. Diagnostic EGD to ensure that the balloon of the percutaneous endoscopic gastrostomy tube is in the stomach. SURGEON: MIKEY WALLACE ANESTHESIA: LMAC TISSUE REMOVED OR ALTERED: As noted above. COMPLICATIONS: None. ESTIMATED BLOOD LOSS: None. INTRAOPERATIVE FINDINGS: As noted above. PROCEDURE: Patient tolerated the procedure well. No immediate postprocedure complications are noted. Patient is discharged in good condition. Discharge date 07/01/2019. Discharge diet: Regular. Discharge activity: Regular. 2 to 3-week follow-up to discuss findings. Patient is instructed to call the office or proceed to the emergency room should there be any further questions. Wait on the pathology.
== END 2019-07-01 09:16 | disposition home or self-care (01) ==
LOC: END 07:45
PROVIDERS: ATTEND Internal Medicine Gastroenterology
DX: Z12.11 Encounter for screening for malignant neoplasm of colon (principal); K52.9 Noninfective gastroenteritis and colitis, unspecified; K86.9 Disease of pancreas, unspecified; R63.4 Abnormal weight loss; Z68.23 Body mass index [BMI] 23.0-23.9, adult; K64.8 Other hemorrhoids; I10 Essential (primary) hypertension
CPT/HCPCS: 43235; 45380; 88305 ×2; 00813; J2704; 813

== ENCOUNTER → 2019-07-17 | Outpatient (CLI) | payer BC ==
[2019-07-17 11:14] LABS: FOLATE > 20.00 ng/mL (>2.76)
== END ==
LOC: OD 08:46
PROVIDERS: ATTEND Family Medicine Geriatric Medicine
DX: N40.1 Benign prostatic hyperplasia with lower urinary tract symptoms (principal); D75.89 Other specified diseases of blood and blood-forming organs; Z79.899 Other long term (current) drug therapy
CPT/HCPCS: 36415; 82746; 84153

== ENCOUNTER → 2019-07-25 | Outpatient (CLI) | payer BC ==
--- NOTE | 2019-07-25 13:33 | RADIOLOGY REPORT (SQ) ---
EXAM DESCRIPTION: ACUTE ABDOMEN SERIES COMPLETED DATE/TIME: 07/25/2019 12:37 pm REASON FOR STUDY: UNSPECIFIED ABDOMINAL PAIN,CONSTIPATION R10.9 UNSPECIFIED ABDOMINAL PAIN K59.00 CONSTIPATION, UNSPECIFIED COMPARISON: None. NUMBER OF VIEWS: Three views. TECHNIQUE: Frontal chest, supine abdomen and upright/decubitus abdomen radiographic images acquired. LIMITATIONS: None. FINDINGS: CHEST: Lungs clear of infiltrates. FREE AIR: None. No abnormal gas collections. BOWEL GAS PATTERN: Nonobstructive pattern. No dilated loops or air fluid levels. Unremarkable fecal burden throughout the colon. CALCIFICATIONS: Irregular calcification overlies right L2 vertebral body and corresponding to known p ancreatic head and uncinate process calcifications. No radiopaque stones overlie kidneys or ureters. HARDWARE: None in the abdomen. SOFT TISSUES: No gross mass or suggestion of organomegaly. BONES: No acute fracture. No worrisome bone lesions. OTHER: No other significant finding. IMPRESSION: 1. Irregular calcifications at the level of the pancreatic head, stable and better eval uated on prior CT. 2. No other evidence of acute intra-abdominal/pelvic process. TECHNICAL DOCUMENTATION: JOB ID: [id number] [employer]- All Rights Reserved Reading location - IP/workstation name: [email or web address]
== END ==
LOC: OD 12:21
PROVIDERS: ATTEND Family Medicine Geriatric Medicine
DX: K59.00 Constipation, unspecified (principal); R10.9 Unspecified abdominal pain
CPT/HCPCS: 74022

== ENCOUNTER 2019-08-08 11:01 | Day surgery (SDC) | payer BC ==
[2019-08-08] MEDS ORDERED: PROPOFOL INJ 200 MG/20 ML VIAL IV ONE (12:21)
--- NOTE | 2019-08-08 14:57 | Operative Report ---
Operative Report DATE OF SURGERY: 08/08/19 Operative Report: The risks benefits and alternatives of the procedure explained to the patient in detail and informed consent is obtained.A GIF Olympus video scope was inserted into the patient's mouth and hypopharynx, the esophagus is identified intubated and insufflated, the scope was then advanced through the esophagus stomach and duodenum, retroflexion maneuver is done, the esophagus stomach and first and second portions of the duodenum examined PREOPERATIVE DIAGNOSIS: Dyspepsia, heme positive stool POSTOPERATIVE DIAGNOSIS: Mild gastritis status post biopsy without Helicobacter pylori OPERATION: EGD with biopsy SURGEON: MIKEY WALLACE ANESTHESIA: LMAC TISSUE REMOVED OR ALTERED: As noted above. COMPLICATIONS: None. ESTIMATED BLOOD LOSS: None. INTRAOPERATIVE FINDINGS: As noted above. PROCEDURE: Patient tolerated the procedure well. No immediate postprocedure complications are noted. Patient is discharged in good condition. Discharge date 08/08/2019. Discharge diet: Regular. Discharge activity: Regular. 2 to 3-week follow-up to discuss findings. Patient is instructed to call the office or proceed to the emergency room should he be any further problems or questions. Wait on the pathology.
[2019-08-08 16:45] VITALS: BP 142/75
== END 2019-08-08 15:30 | disposition home or self-care (01) ==
LOC: OROUT 11:01
PROVIDERS: ATTEND Internal Medicine Gastroenterology
DX: K92.1 Melena (principal); K29.50 Unspecified chronic gastritis without bleeding
CPT/HCPCS: 43239; 88342 ×2; 88305 ×2; 00731; J2704; 731

== ENCOUNTER → 2019-10-01 | Outpatient (CLI) | payer BC ==
[2019-10-01 12:16] LABS: FOLATE > 20.00 ng/mL (>2.76)
== END ==
LOC: OD 09:45
PROVIDERS: ATTEND Family Medicine Geriatric Medicine
DX: D75.89 Other specified diseases of blood and blood-forming organs (principal); N40.1 Benign prostatic hyperplasia with lower urinary tract symptoms; Z79.899 Other long term (current) drug therapy
CPT/HCPCS: 36415; 82746; 84153

== ENCOUNTER → 2019-12-26 | Outpatient (CLI) | payer BC ==
--- NOTE | 2019-12-26 09:04 | RADIOLOGY REPORT (SQ) ---
EXAM DESCRIPTION: CT ABDOMEN COMBO IMAGES COMPLETED DATE/TIME: 12/26/2019 8:24 am REASON FOR STUDY: OTHER SPECIFIED DISEASES OF PANCREAS K86.89 OTHER SPECIFIED DISEASES OF PANCREAS COMPARISON: CT abdomen pelvis 03/20/2019, 09/29/2014 TECHNIQUE: CT scan of the abdomen performed with and without intravenous contrast, and without oral contrast. Contrasted imaging performed using helical scanning technique with dynamic intravenous cont rast injection. Images reviewed with lung, soft tissue, and bone windows. Reconstructed coronal and s agittal MPR images reviewed. Delayed images for evaluation of the urinary system also acquired and ev aluated. All images stored on PACS. All CT scanners at this facility use dose modulation, iterative reconstruction, and/or weight based d osing when appropriate to reduce radiation dose to as low as reasonably achievable (ALARA). [facility]: Dose Right [facility]: CareDose [facility]: Dose Right [facility]: Teradose 4D [facility]: [employer] CONTRAST TYPE AND DOSE: contrast/concentration: Isovue 350.00 mg/ml; Total Contrast Delivered: 80.0 ml; Total Saline Delivered: 80.0 ml RENAL FUNCTION: Creatinine 1.0 RADIATION DOSE: CT Rad equipment meets quality standard of care and radiation dose reduction techniq ues were employed. CTDIvol: 11.4 - 16.9 mGy. DLP: 1845 mGy-cm.. LIMITATIONS: None. FINDINGS: NONCONTRASTED IMAGING: Extensive calcification at the pancreatic head from old chronic piper cific pancreatitis, unchanged from both prior CT exams POSTCONTRASTED IMAGING: Extensive heavy calcification is present the pancreatic head. This is unchanged from studies dating back to 2015. Coarse dense 2.5 x 1.5 cm calcification is present along the uncinate, abutting and na rrowing the distal main pancreatic duct on axial series 6, images 62-60. The remainder of the pancre atic duct in the body tail about 8 to 10 mm diameter, with pancreatic parenchymal atrophy. No enhanc ing pancreatic mass. No peripancreatic inflammation or retroperitoneal fluid/inflammation. Please note that the calcifications at the pancreatic head do not impinge on the distal common duct, the common bile duct intrahepatic bile ducts are nondilated Overall appearance of the biliary tree, pancreatic head calcifications, pancreatic ductal dilatation and pancreatic parenchymal atrophy along the body tail of pancreas is stable compared previous studie s. No splenic vein or superior mesenteric vein thrombosis. LOWER CHEST: No significant findings. No nodules or infiltrates. LIVER: Normal size. No masses. No dilated ducts. SPLEEN: Normal size. No focal lesions. PANCREAS: As above GALLBLADDER: No identified stones by CT criteria. No inflammatory changes to suggest cholecystitis. ADRENAL GLANDS: No significant masses or asymmetry. RIGHT KIDNEY AND URETER: No solid masses. Multiple right renal cysts, largest is 3 cm in the upper p ole kidney. No significant calcifications. No hydronephrosis or hydroureter. LEFT KIDNEY AND URETER: No solid masses. No significant calcifications. No hydronephrosis or hydr oureter. AORTA AND VESSELS: No aneurysm. No dissection. Renal arteries, SMA, celiac without stenosis. RETROPERITONEUM: No retroperitoneal adenopathy, hemorrhage or masses. BOWEL AND PERITONEAL CAVITY: No masses or inflammatory changes. No free fluid or peritoneal masses. APPENDIX: Normal. ABDOMINAL WALL: No masses. No hernias. BONES: Degenerative changes lower lumbar spine OTHER: No other significant finding. IMPRESSION: Chronic pancreatic head calcifications, pancreatic duct dilatation with parenchymal atro phy, similar compared to 09/29/2014 TECHNICAL DOCUMENTATION: JOB ID: [id number] Quality ID # [id number]: Final reports with documentation of one or more dose reduction techniques (e.g., Au tomated exposure control, adjustment of the mA and/or kV according to patient size, use of iterative reconstruction technique) 2010 [employer]- All Rights Reserved Reading location - IP/workstation name: [email or web address]
== END ==
LOC: RAD 07:53
PROVIDERS: ATTEND Physician Assistant Medical
DX: K86.89 Other specified diseases of pancreas (principal)
CPT/HCPCS: 74170; 82565

== ENCOUNTER → 2020-05-12 | Outpatient (CLI) | payer BC ==
--- NOTE | 2020-05-12 14:01 | RADIOLOGY REPORT (SQ) ---
EXAM DESCRIPTION: NM GASTRIC EMPTYING STUDY IMAGES COMPLETED DATE/TIME: 05/12/2020 12:41 pm REASON FOR STUDY: CHRONIC PANCREATITIS (K86.1), RUQ PAIN (R10.11), EARLY SATIETY (R68.81), DE K86.1 OTHER CHRONIC PANCREATITIS R10.11 RIGHT UPPER QUADRANT PAIN R68.81 EARLY SATIETY COMPARISON: None. RADIONUCLIDE AND DOSE: 2 millicuries Tc-99m Sulfur Colloid. Egg salad sandwich The route of agent administration: Oral. TECHNIQUE: 1 minute serial static imaging performed at time of meal, 1 hour, 2 hours, 3 hours, and 4 hours as needed. Once stomach reaches 90% emptying, the test is complete. Image intensity values pl otted with respect to time with linear regression algorithm. LIMITATIONS: None. FINDINGS: Patient was observed for 4 hours. Immediate post meal serves as baseline. Gastric emptying at 30 minutes was 14.2%. Gastric emptying at 60 minutes was 28.5% Gastric emptying at 90 minutes was 42.7%. Gastric emptying at 120 minutes was 57%. Gastric emptying at 240 minutes was 100%. Normal values: 60 minutes: 30-90% retained. If less than 30%, abnormally rapid emptying. If greater than 90%, delaye d gastric emptying. 120 minutes: <60% retained. If greater than 60%, delayed gastric emptying. 240 minutes: <10% retained. If greater than 10%, delayed gastric emptying. IMPRESSION: NORMAL GASTRIC EMPTYING. TECHNICAL DOCUMENTATION: JOB ID: [id number] 2010 [employer]- All Rights Reserved rev-02/09 Reading location - IP/workstation name: [email or web address]
== END ==
LOC: RAD 07:42
PROVIDERS: ATTEND Physician Assistant Medical
DX: K86.1 Other chronic pancreatitis (principal); R10.11 Right upper quadrant pain; R68.81 Early satiety; R63.0 Anorexia
CPT/HCPCS: 78264; A9541

== ENCOUNTER → 2020-10-09 | Outpatient (CLI) | payer BC ==
[2020-10-09 12:40] LABS: ABSOLUTE EOSINOPHILS # (AUTO) 0.1 10^3/uL (0.0-0.6); ABSOLUTE LYMPHOCYTES (AUTO) 1.7 10^3/uL (0.5-4.7); ABSOLUTE MONOCYTES (AUTO) 0.6 10^3/uL (0.1-1.4); ABSOLUTE NEUT (AUTO) 5.3 10^3/uL (1.7-8.2); BASOPHILS % (AUTO) 0.4 % (0-2); EOSINOPHILS % (AUTO) 1.1 % (0-6); HEMATOCRIT 35.5 % (37.9-51.0); HEMOGLOBIN 12.1 g/dL (13.5-17.0); LYMPHOCYTES % (AUTO) 22.4 % (13-45); MEAN CORPUSCULAR HEMOGLOBIN 31.7 pg (27.0-33.4); MEAN CORPUSCULAR HGB CONC 34.2 g/dL (32.0-36.0); MEAN CORPUSCULAR VOLUME 93 fl (80-97); MONOCYTES % (AUTO) 7.9 % (3-13); PLATELET COUNT 258 10^3/uL (150-450); RED BLOOD COUNT 3.83 10^6/uL (4.35-5.55); RED CELL DISTRIBUTION WIDTH 13.7 % (11.5-14.0); SEGMENTED NEUTROPHILS % (AUTO) 68.2 % (42-78); TOTAL CELLS COUNTED % (AUTO) 100 %; WHITE BLOOD COUNT 7.7 10^3/uL (4.0-10.5)
[2020-10-09 12:53] LABS: ALBUMIN 4.2 g/dL (3.5-5.0); ALKALINE PHOSPHATASE 127 U/L (38-126); ANION GAP 8 (5-19); ASPARTATE AMINO TRANSFERASE 35 U/L (17-59); BILIRUBIN,DIRECT 0.2 mg/dL (0.0-0.4); BILIRUBIN,TOTAL 0.5 mg/dL (0.2-1.3); BLOOD UREA NITROGEN 13 mg/dL (7-20); CALCIUM 9.5 mg/dL (8.4-10.2); CARBON DIOXIDE 28 mmol/L (22-30); CHLORIDE 105 mmol/L (98-107); GLUCOSE 103 mg/dL (75-110); POTASSIUM 4.5 mmol/L (3.6-5.0); TOTAL PROTEIN 8.5 g/dL (6.3-8.2)
--- NOTE | 2020-10-09 13:13 | RADIOLOGY REPORT (SQ) ---
EXAM DESCRIPTION: CERV SP 4 OR 5 VIEWS IMAGES COMPLETED DATE/TIME: 10/09/2020 12:12 pm REASON FOR STUDY: NECK PAIN M54.12 RADICULOPATHY, CERVICAL REGION COMPARISON: None. NUMBER OF VIEWS: Five views. TECHNIQUE: AP, lateral, obliques and odontoid radiographic images acquired of the cervical spine. LIMITATIONS: Evaluation of the right neural foramina is limited because of positioning difficulties. FINDINGS: MINERALIZATION: Normal. ALIGNMENT: Anatomic. VERTEBRAE: Vertebral bodies of normal height. DISCS: Mild disc narrowing from C5-C7 with marginal osteophytes. FORAMINA: Mild narrowing of the C5-6 foramen on the left secondary to uncovertebral osteophytes. The re appears to be narrowing of the right neural foramen at this same level, but evaluation is limited. LATERAL AND POSTERIOR ELEMENTS: Facets, lateral masses and spinous processes without significant find ings. HARDWARE: None in the spine. SOFT TISSUES: No masses or calcifications. Lung apices clear. OTHER: No other significant finding. IMPRESSION: Degenerative disc disease, spondylosis. TECHNICAL DOCUMENTATION: JOB ID: [id number] 2010 [employer]- All Rights Reserved Reading location - IP/workstation name: [email or web address]
== END ==
LOC: RAD 11:37
PROVIDERS: ATTEND Family Medicine Geriatric Medicine
DX: M50.323 Other cervical disc degeneration at C6-C7 level (principal); M47.812 Spondylosis without myelopathy or radiculopathy, cervical region; N40.1 Benign prostatic hyperplasia with lower urinary tract symptoms; K86.0 Alcohol-induced chronic pancreatitis; Z79.899 Other long term (current) drug therapy
CPT/HCPCS: 36415; 72050; 80053; 84153; 84443; 85025